=== PATIENT | male | born 1995 | race Caucasian/White ===

== ENCOUNTER 2020-03-19 18:53 | Emergency (ER) | payer OTHER, SELFPAY ==
--- NOTE | ~2020-03-19 | XR_ITS ---
EXAMINATION: XR chest 1V portable DATE: 03/19/2020 20:13 INDICATION: Weakness, fatigue and loss of taste/smell. TECHNIQUE: frontal view of the chest was obtained. COMPARISON: None FINDINGS: The lungs are clear with no focal airspace opacities, pulmonary edema, pleural effusion or pneumothor ax. The cardiomediastinal silhouette is normal. Visualized bones and soft tissues are unremarkable. IMPRESSION: 1. No acute cardiopulmonary disease. Reviewed, dictated and finalized at location A.
[2020-03-19 18:55] VITALS: BP 146/98; PULSE 77; RESP 15; TEMP 36.4; O2SAT 100
[2020-03-19 19:30] VITALS: O2SAT 99
--- NOTE | 2020-03-19 20:56 | ED.URI ---
HPI - URI/Sore Throat General Chief Complaint: Upper Respiratory Infection Stated Complaint: lethargic/no sense of taste Time Seen by Provider: 03/19/20 19:40 History of Present Illness HPI Narrative: Patient is a 24-year-old male who presents ER with concerns for COVID-19 illness. Patient reports that he has had some upper respiratory congestion for the last week. Yesterday he lost his ability to taste and smell. He was eating anchovy pizza as well as tacos and cannot taste or smell either of these. No fever/chills/cough/shortness of breath. No known exposures but works at [employer] with many other people. Related Data Allergies Allergy/AdvReac Type Severity Reaction Status Date / Time amoxicillin Allergy Mild hives Verified 10/06/19 15:15 bee pollen Allergy Mild swelling Verified 10/06/19 15:15 Penicillins Allergy Mild hives Verified 10/06/19 15:15 Review of Systems Review of Systems: All systems reviewed & are unremarkable except as noted in HPI and below Constitutional: Constitutional: Denies chills, Denies fever(s) and Denies weakness ENT: Comments: Loss of taste and smell Respiratory: Respiratory: Denies cough, Denies dyspnea and Denies wheezing Gastrointestinal: Gastrointestinal: Denies abdominal pain, Denies nausea and Denies vomiting PMFSH Past Medical History Medical History (Updated 03/19/20 @ 21:03 by Ángel Santiago MD) Bipolar disorder, manic 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 HEAD: Normocephalic, atraumatic. CHEST: Clear to auscultation. No respiratory distress. HEART: Regular rate and rhythm. Normal peripheral pulses. EXTREMITIES: Normal range of motion. No edema. NEURO: Alert and oriented x3. PSYCH: Normal mood and affect. Course Course Emergency Course: Unremarkable exam and imaging. Discharge home with work note. Vital Signs Vital signs: Vital Signs Temperature 97.6 F 03/19/20 18:55 Pulse Rate 77 03/19/20 18:55 Respiratory Rate 15 03/19/20 18:55 Blood Pressure 146/98 H 03/19/20 18:55 Pulse Oximetry 100 03/19/20 18:55 Temperature 97.6 F 03/19/20 18:55 Pulse Rate 77 03/19/20 18:55 Respiratory Rate 15 03/19/20 18:55 Blood Pressure 146/98 H 03/19/20 18:55 Pulse Oximetry 100 03/19/20 18:55 Discharge Plan Discharge Clinical Impression: Loss of perception for taste, Loss of smell, Person under investigation for COVID-19 Patient Disposition: Home, Self-Care Condition: Stable Instructions: COVID-19 (Coronavirus Disease 2019) (ED) Additional Instructions: Return to the ER if you have fever over 100.4 ?F, you have chest pain or shortness of breath, cannot keep down food or water, you have additional concerns. You should not return to work until you are either COVID negative, or have been cleared by your primary care doctor should you be positive. Prescriptions: No Action aripiprazole [Abilify] 5 mg tablet 5 mg PO DAILY Qty: 30 RF: 0 Follow-up/Referrals: Brianna Lees MD [Primary Care Provider] - 1 Week Stand Alone Forms: Work/School Release IP
[2020-03-19 21:16] VITALS: PULSE 82; RESP 18; O2SAT 99
[2020-03-20 14:58] LABS: SARS-CoV-2 RNA PCR Positive
== END 2020-03-19 21:17 | disposition home or self-care (01) ==
PROVIDERS: Emergency Provider Emergency Medicine; PCP Family Medicine
DX: U07.1 COVID-19 (principal); R43.8 Other disturbances of smell and taste
CPT/HCPCS: 71045; 87635; 99283; C9803; U0003

== ENCOUNTER 2020-11-30 02:41 | Emergency (ER) | payer OTHER, SELFPAY ==
[2020-11-30 02:39] VITALS: BP 130/94; PULSE 101; RESP 18; TEMP 36.6; O2SAT 97
--- NOTE | 2020-11-30 02:45 | ECG_ITS ---
Measurements Intervals [place] Rate: 96 P: 49 AR: 184 QRS: 32 QRSD: 121 T: 33 QT: 325 QTc: 412 Interpretive Statements SINUS RHYTHM INTRAVENTRICULAR CONDUCTION DELAY BASELINE ARTIFACT- II, III BORDERLINE ECG Electronically Signed On 11-30-2020 15:58:21 CDT by Mynor Pollock D.O.
[2020-11-30 03:00] LABS: Basophils Percent Auto 0.5 % (0.2-1.2); Eosinophils Percent Auto 0.5 % (0-4.4); Hematocrit 45.3 % (42.0-52.0); Hemoglobin 15.3 g/dL (14.0-18.0); Immature Granulocyte Absolute 0.03 K/mm3 (0.00-0.031); Immature Granulocyte Percent A 0.5 % (0-0.5); Lymphocytes Absolute Auto 1.87 K/mm3 (0.9-3.2); Lymphocytes Percent Auto 30.8 % (18.3-44.2); Mean Corpuscular HGB Conc 33.8 g/dl (32-36); Mean Corpuscular Hemoglobin 29.5 pg (26-34); Mean Corpuscular Volume 87.3 fl (80-100); Mean Platelet Volume 9.7 fl (7.4-10.4); Monocytes Absolute Auto 0.7 K/mm3 (0.1-0.6); Monocytes Percent Auto 11.2 % (2.6-8.5); Neutrophils Absolute Auto 3.4 K/mm3 (1.3-6.7); Neutrophils Percent Auto 56.5 % (45.5-73.1); Platelet Count Result 244 k/mm3 (150-375); Red Blood Count 5.19 M/mm3 (4.6-6.20); Red Cell Distribution Width 12.8 % (11.5-14.5); White Blood Count 6.1 K/mm3 (4.5-10.0)
--- NOTE | 2020-11-30 03:00 | PC.NURSE ---
Pt calm and cooperative. Sitter at bedside. No distress.
[2020-11-30 03:12] LABS: Alanine Aminotransferase 49 U/L (4-50); Albumin Level 4.9 g/dL (3.5-5.1); Alkaline Phosphatase 70 U/L (38-126); Anion Gap 11 mmol/L (8-16); Aspartate Amino Transferase 42 U/L (17-59); Bilirubin,Total 0.2 mg/dL (0.2-1.3); Blood Urea Nitrogen 12 mg/dL (9-20); Calcium 8.7 mg/dL (8.4-10.2); Carbon Dioxide 24 mmol/L (22-30); Chloride 109 mmol/L (98-107); Estimated CRCL calculation 120 ml/min; Estimated Glomerular Filt Rate > 60; Glucose 115 mg/dL (75-110); Potassium 3.7 mmol/L (3.4-5.0); Sodium 144 mmol/L (137-145)
[2020-11-30 03:16] LABS: Ethanol 200 mg/dL (<10)
--- NOTE | 2020-11-30 03:42 | ED.GENADULT ---
HPI - General Adult General Chief complaint: Psychiatric Symptoms <Marci López MD - Last Filed: 11/30/20 07:02> Stated complaint: SI - psych eval <Marci López MD - Last Filed: 11/30/20 07:02> Time Seen by Provider: 11/30/20 03:14 <Marci López MD - Last Filed: 11/30/20 07:02> Source: patient and EMS <Marci López MD - Last Filed: 11/30/20 07:02> Limitations: no limitations <Marci López MD - Last Filed: 11/30/20 07:02> History of Present Illness HPI narrative: Patient is 25 years old white male came to the emergency room by ambulance because of suicidal ideation for the last 3 weeks/months/years. Patient reports intermittent feeling of killing himself, patient is telling me that he wants to also is planning to lay in front of traffic to get killed. Patient been inpatient for psychiatric care at least 4 times in the past and had multiple suicide attempts. Including drug overdose and cutting himself. <Marci López MD - Last Filed: 11/30/20 07:02> Related Data Allergies/adverse reactions: Allergies Allergy/AdvReac Type Severity Reaction Status Date / Time amoxicillin Allergy Mild hives Verified 11/30/20 02:47 bee pollen Allergy Mild swelling Verified 11/30/20 02:47 Penicillins Allergy Mild hives Verified 11/30/20 02:47 <Marci López MD - Last Filed: 11/30/20 07:02> Review of Systems Review of Systems: Narrative: CONSTITUTIONAL: Denies fever, chills, or sweats. EYES: Denies visual changes, redness, or discharge. ENT: Denies rhinorrhea, congestion, sore throat, or otalgia. CARDIOVASCULAR: Denies chest pain, palpitations, or edema. RESPIRATORY: Denies cough or dyspnea. GASTROINTESTINAL: Denies abdominal pain, nausea, vomiting, or diarrhea. GENITOURINARY: Denies dysuria or hematuria. SKIN: Denies rash or itching. MUSCULOSKELETAL: Denies back pain, joint pain, or myalgia. NEUROLOGIC: Denies headache, numbness, or weakness. PSYCHIATRIC: Denies anxiety or depression. 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 Schizoaffective disorder, bipolar type <Marci López MD - Last Filed: 11/30/20 07:02> Surgical History Surgical History: Surgical History No pertinent past surgical history <Marci López MD - Last Filed: 11/30/20 07:02> Social History Social History: Social History Social History: single Smoking status: Never smoker Second hand tobacco smoke exposure: No Alcohol intake: never Substance use: never Substance use type: does not use Gender identity (if verbalized by the patient): Male <Marci López MD - Last Filed: 11/30/20 07:02> Exam Narrative: Exam Narrative: General appearance: Well-developed, well-nourished Skin: Normal color Head: Normocephalic, nontraumatic Eyes: Clear conjunctiva ENT: Oropharynx normal, ears normal, nose normal Neck: Supple, nontender Chest and respiratory: Airway patent, no respiratory distress, no accessory muscle use Heart: Regular rate/rhythm Abdomen: Soft, nontender, no organomegaly, quiet bowel sounds Vascular: Normal peripheral pulses, normal capillary refill. Musculoskeletal: Normal range of motion, nontender back Neurologic: Alert and oriented ?3, FIBERGLASS ROLLER is normal as tested, no gross motor deficit <Marci López MD - Last Filed: 11/30/20 07:02> Course Course Emergency Course: Stable <Marci López MD - Last
--- NOTE | 2020-11-30 03:47 | PC.NURSE ---
Pt unable to provide UA sample at this time.
[2020-11-30 04:21] LABS: Add Urine Microscopic? NO; Appearance Urine Clear (Clear); Bilirubin Urine Negative (Negative); Blood Urine Negative (Negative); Color Urine Yellow (Yellow); Glucose Urine UA Negative (Negative); Ketones Urine Negative (Negative); Leukocyte Esterase Ur Negative LEU/UL (Negative); Nitrate Urine Negative (Negative); Protein Urine Negative (Negative); Specific Grav Ur 1.011 (1.001-1.035); Urobilinogen Urine Negative mg/dL (<2.0)
[2020-11-30 04:36] LABS: Amphetamine Screen Urine Negative (Negative); Barbiturate Screen Urine Negative (Negative); Benzodiazepines Screen Urine Negative (Negative); Cannabinoid Screen Urine Negative (Negative); Cocaine Screen Urine Negative (Negative); Methadone Screen Urine Negative (Negative); Opiate Screen Urine Negative (Negative); Phencyclidine Screen Urine Negative (Negative)
--- NOTE | 2020-11-30 06:01 | PC.NURSE ---
1:1 observation continues. Pt sleeping. No distress.
[2020-11-30 06:03] VITALS: BP 142/78; PULSE 89; RESP 16; O2SAT 98
--- NOTE | 2020-11-30 07:15 | PC.NURSE ---
Pt asleep easily arousable, non-labored respirations, 1:1 sitter at bedside. Breakfast tray ordered
--- NOTE | 2020-11-30 08:15 | PC.NURSE ---
Pt awake, resting on cart, updated on POC. Denies SI/HI, states I just said those things when I was drinking , calm and cooperative, asking when he can go home. 1:1 sitter at bedside
[2020-11-30 08:29] LABS: Ethanol 104 mg/dL (<10)
--- NOTE | 2020-11-30 09:28 | PC.NURSE ---
Per Dr Santiago repeat ETOH needed before medical clearance. Pt awake, resting on cart, calm, 1:1 sitter at bedside
[2020-11-30 10:25] LABS: Ethanol 52 mg/dL (<10)
--- NOTE | 2020-11-30 10:30 | PC.NURSE ---
Spoke with crisis, states they will send out worker for eval
--- NOTE | 2020-11-30 11:52 | PC.NURSE ---
Crisis at bedside
--- NOTE | 2020-11-30 12:54 | PC.NURSE ---
Crisis still at bedside speaking with pt
[2020-11-30 13:11] VITALS: BP 118/75; PULSE 78; RESP 18; O2SAT 100
[2020-11-30 14:27] LABS: SARS-CoV-2 RNA PCR Negative
== END 2020-11-30 13:11 | disposition home or self-care (01) ==
PROVIDERS: Emergency Medicine; Emergency Provider Emergency Medicine
DX: Z20.822 Contact with and (suspected) exposure to COVID-19 (principal); F10.129 Alcohol abuse with intoxication, unspecified; Y90.0 Blood alcohol level of less than 20 mg/100 ml; F31.9 Bipolar disorder, unspecified
CPT/HCPCS: 36415; 80053; 80307; 81003; 84443; 85025; 93005; 99283; C9803; U0003; U0005

== ENCOUNTER 2024-04-22 17:23 | Emergency (ER) | payer OTHER, SELFPAY ==
--- NOTE | ~2024-04-22 | XR_ITS ---
EXAMINATION: XR abdomen/kub 1V DATE: 04/22/2024 19:33 INDICATION: Abdominal pain with constipation TECHNIQUE: A supine view of the abdomen on 2 radiographs was obtained. COMPARISON: None. FINDINGS: Small to moderate amount of gas scattered throughout the colon with minimal stool in the sigmoid colo n. No dilated gas-filled loops of small bowel to suggest obstruction. Phlebolith in the right hemipel vis. Bones are unremarkable. IMPRESSION: 1. Nonobstructive bowel gas pattern with minimal stool in the sigmoid colon Reviewed, dictated and finalized at location A.
--- NOTE | ~2024-04-22 | CT_ITS ---
EXAMINATION: CT chest abdomen pelvis w con DATE: 04/22/2024 21:19 INDICATION: Abdominal pain, nausea, vomiting and diarrhea TECHNIQUE: Computed tomography (CT) of the chest, abdomen, and pelvis was performed with 100 mL Omnip aque-350 intravenous contrast. Automated exposure control and iterative reconstruction technique were employed. The dose-length product was 1042.10 mGy-cm. COMPARISON: None FINDINGS: CHEST CT: Lungs are clear with no pneumonia, pulmonary edema or other pulmonary infiltrates. No pleural effusio n or pneumothorax. Heart size is normal. No pericardial effusion. No pathologically enlarged thoracic lymphadenopathy. Mild thoracic spondylosis. There is aortic root aneurysm with aorta measuring 3.7 cm in diameter at the aortic annulus, 5.2 x 4. 9 cm at the aortic sinus decreasing to 4.6 x 4.2 cm at the sinotubular junction and 3.8 x 3.6 cm at t he mid descending aorta. The aortic arch and descending thoracic aorta are normal in caliber. No aort ic dissection. ABDOMEN/PELVIS CT: Liver, gallbladder, spleen, pancreas, bilateral adrenal glands and kidneys are normal. There is fluid scattered throughout the normal-appearing colon consistent with given history of diarrhea. Small bow el and appendix are normal. Bladder is normal. No free intraperitoneal gas or fluid. There are smiley us small scattered throughout the mesentery which are more notable for number than size. No pathologi bambi enlarged abdominal or pelvic lymphadenopathy. Abdominal aorta is normal in caliber with no diss ection. Mild lumbar and moderate lumbosacral spondylosis. IMPRESSION: 1. 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 No other acute cardiopulmonary di sease. Given patient age this raise possibility of connective tissue disease or sequela of aortitis. 2. Fluid throughout the colon consistent with nonspecific diarrhea. No other acute intra-abdominal/pe lvic process. 3. Likely reactive mild mesenteric lymphadenopathy with numerous normal sized lymph nodes more notabl e for number than size. Reviewed, dictated and finalized at location A. IMPRESSION: 1. 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 No other ac tribe cardiopulmonary disease. Given patient age this raise possibility of connec tive tissue disease or sequela of aortitis. 2. Fluid throughout the colon consistent with nonspecific diarrhea. No other ac tribe intra-abdominal/pelvic process. 3. Likely reactive mild mesenteric lymphadenopathy with numerous normal sized l ymph nodes more notable for number than size.
[2024-04-22 17:23] VITALS: BP 130/88; PULSE 128; RESP 16; TEMP 36.2; O2SAT 99
[2024-04-22 19:02] VITALS: BP 126/98; PULSE 106; RESP 16; TEMP 37.2; O2SAT 98
--- NOTE | 2024-04-22 19:21 | ECG_ITS ---
Test Date: 2024-04-22 19:21:55 Measurements Intervals [place] Rate: 119 P: 48 [place]: 177 QRS: 48 QRSD: 106 T: 15 QT: 307 QTc: 433 Interpretive Statements SINUS TACHYCARDIA POSSIBLE LEFT ATRIAL ENLARGEMENT BORDERLINE R WAVE PROGRESSION, ANTERIOR LEADS CONSIDER INFERIOR INFARCT, AGE INDETERMINATE BASELINE ARTIFACT- I, II, III, AVR, AVL, AVF ABNORMAL ECG No previous ECG available for comparison Electronically Signed On 04-23-2024 10:13:35 CDT by Mynor Pollock D.O.
--- NOTE | 2024-04-22 19:26 | ED.NAVMDI ---
HPI - Nausea/Vomiting/Diarrhea General Chief complaint: Nausea/Vomiting/Diarrhea Stated complaint: diarrhea Time Seen by Provider: 04/22/24 18:32 Source: patient Mode of arrival: ambulatory Limitations: no limitations History of Present Illness HPI Narrative: Patient is a 28-year-old male who presents to the ER with diarrhea that started 6-7 days ago, he had nausea and vomiting that started today, and headache that started yesterday. His symptoms have progressively gotten worse. He denies any recent fevers but endorses feeling hot. Patient reports his medical History includes bipolar disease and viral meningitis at the age of 12. He reports he has not used alcohol or marijuana in the last couple of weeks. Patient denies shortness of breath, chest pain, wheezing, numbness or tingling. 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 HEAD: Normocephalic, atraumatic. No redness or swelling upon pt's oral exam. NECK: Supple. Palpable R sided cervical lymph node. RESPIRATORY: Airway patent, respirations nonlabored. Clear to auscultation bilaterally, no rales, rhonchi, wheezing. CARDIOVASCULAR: Tachycardia but regular rhythm without murmurs, rubs, or gallops. Peripheral pulses 2+ and equal bilaterally. ABDOMINAL: Soft, bilateral LUQ tender, nondistended, no hepatosplenomegaly. Normoactive BS. MUSCULOSKELETAL: Moves all extremities. Strength/ROM intact without gross deformities. SKIN: Warm, dry, normal color. No rashes. NEURO: A&O X3. Speech clear. Cranial nerves II-XII grossly intact. No ataxic movements. PSYCHIATRIC: Appropriate mood and affect. Normal interaction. Course Vital Signs Vital signs: Vital Signs Temperature 36.2 C L 04/22/24 17:23 Pulse Rate 128 H 04/22/24 17:23 Respiratory Rate 16 04/22/24 17:23 Blood Pressure 130/88 04/22/24 17:23 Pulse Oximetry 99 04/22/24 17:23 Temperature 36.8 C 04/23/24 00:34 Pulse Rate 97 04/23/24 00:34 Respiratory Rate 16 04/23/24 00:34 Blood Pressure 115/83 04/23/24 00:34 Pulse Oximetry 98 04/23/24 00:34 MDM - Nausea/Vomiting/Diarrhea MDM Narrative Medical decision making narrative: Patient is a 28-year-old male who presents to the ER with diarrhea that started 6-7 days ago, he had nausea and vomiting that started today, and headache that started yesterday. His symptoms have progressively gotten worse. He denies any recent fevers but endorses feeling hot. Patient reports his medical History includes bipolar disease and viral meningitis at the age of 12. He reports he has not used alcohol or marijuana in the last couple of weeks. Patient denies shortness of breath, chest pain, wheezing, numbness or tingling. Patient's CT chest abdomen pelvis showed 1. 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
[2024-04-22] MEDS: SODIUM CHLORIDE 0.9% IV 1,000 ML 999 ML IV CONT (20:12)
[2024-04-22] MEDS: ONDANSETRON INJ 4 MG/2 ML VIAL IV PUSH (20:12)
[2024-04-22 20:34] LABS: Basophils Percent Auto 0.4 % (0.2-1.2); Eosinophils Percent Auto 0.2 % (0-4.4); Hematocrit 50.2 % (42.0-52.0); Hemoglobin 17.6 g/dL (14.0-18.0); Immature Granulocyte Absolute 0.05 K/mm3 (0.00-0.031); Immature Granulocyte Percent A 0.5 % (0-0.5); Lymphocytes Absolute Auto 1.05 K/mm3 (0.9-3.2); Lymphocytes Percent Auto 11.5 % (18.3-44.2); Mean Corpuscular HGB Conc 35.1 g/dl (32-36); Mean Corpuscular Hemoglobin 29.7 pg (26-34); Mean Corpuscular Volume 84.8 fl (80-100); Mean Platelet Volume 10.1 fl (7.4-10.4); Monocytes Absolute Auto 1.2 K/mm3 (0.1-0.6); Neutrophils Absolute Auto 6.8 K/mm3 (1.3-6.7); Neutrophils Percent Auto 74.4 % (45.5-73.1); Platelet Count Result 258 k/mm3 (150-375); Red Blood Count 5.92 M/mm3 (4.6-6.20); Red Cell Distribution Width 12.6 % (11.5-14.5); White Blood Count 9.2 K/mm3 (4.5-10.0)
[2024-04-22 20:38] LABS: Add Urine Microscopic? YES; Appearance Urine Clear (Clear); Bacteria Urine None Seen /hpf; Bilirubin Urine Negative (Negative); Blood Urine Negative (Negative); Color Urine Dark Yellow (Yellow); Glucose Urine UA Negative (Negative); Ketones Urine 2+ mg/dL (Negative); Leukocyte Esterase Ur Negative LEU/UL (Negative); Nitrate Urine Negative (Negative); Non Pathogenic Casts 0-2; Protein Urine 1+ mg/dL (Negative); RBC Urine 0-2 /hpf (0-2); Specific Grav Ur 1.023 (1.001-1.035); Squamous Epithelial Cell Urine None Seen /hpf (Few); Urobilinogen Urine 0.2 mg/dL (<2.0); WBC Urine 0-5 /hpf (0-3); pH Urine 5.5 (5.0-9.0)
[2024-04-22 20:52] LABS: Amphetamine Screen Urine Negative (Negative); Barbiturate Screen Urine Negative (Negative); Benzodiazepines Screen Urine Negative (Negative); Cannabinoid Screen Urine Positive (Negative); Cocaine Screen Urine Negative (Negative); Methadone Screen Urine Negative (Negative); Opiate Screen Urine Negative (Negative); Phencyclidine Screen Urine Negative (Negative)
[2024-04-22 20:58] LABS: Lactic Acid Reflex 1.1 mmol/L (0.7-2.0)
[2024-04-22 20:59] LABS: Alanine Aminotransferase 70 U/L (6-50); Albumin Level 5.1 g/dL (3.5-5.1); Alkaline Phosphatase 88 U/L (38-126); Anion Gap 18 mmol/L (4-12); Aspartate Amino Transferase 49 U/L (17-59); Bilirubin,Total 0.6 mg/dL (0.2-1.3); Blood Urea Nitrogen 16 mg/dL (9-20); Calcium 9.3 mg/dL (8.4-10.2); Carbon Dioxide 18 mmol/L (22-30); Chloride 97 mmol/L (98-107); Estimated CRCL calculation 128 ml/min; Estimated Glomerular Filt Rate > 60; Glucose 98 mg/dL (65-110); Lipase 54 U/L (23-300); Potassium 3.5 mmol/L (3.4-5.0); Sodium 133 mmol/L (137-145)
[2024-04-22 21:43] LABS: Ethanol < 10 mg/dL (<10)
[2024-04-22 21:56] VITALS: BP 107/78; PULSE 104; RESP 15; TEMP 37.2; O2SAT 98
[2024-04-22 22:34] VITALS: BP 135/80; PULSE 95
[2024-04-22 22:35] VITALS: BP 131/95; PULSE 106
[2024-04-22 22:36] VITALS: BP 123/97; PULSE 103
[2024-04-22 22:50] LABS: Influenza A QL RT-PCR Negative (Negative); Influenza B QL RT-PCR Negative (Negative); RSV RNA, RT-PCR Negative (Negative); SARS-CoV-2 RNA PCR Negative (Negative)
[2024-04-23] MEDS: SODIUM CHLORIDE 0.9% IV 1,000 ML 999 ML IV CONT (00:30)
[2024-04-23] MEDS: diphenhydrAMINE HCl INJ 50 MG/ML VIAL 25 MG IV PUSH (00:30)
[2024-04-23] MEDS: METOCLOPRAMIDE HCL INJ 10 MG/2 ML VIAL IV PUSH (00:31)
[2024-04-23 00:34] VITALS: BP 115/83; PULSE 97; RESP 16; TEMP 36.8; O2SAT 98
[2024-04-23 02:08] VITALS: BP 117/76; PULSE 68; RESP 16; TEMP 36.6; O2SAT 98
== END 2024-04-23 02:09 | disposition home or self-care (01) ==
PROVIDERS: Emergency Provider Registered Nurse
DX: E86.0 Dehydration (principal); K52.9 Noninfective gastroenteritis and colitis, unspecified; R11.2 Nausea with vomiting, unspecified; Z20.822 Contact with and (suspected) exposure to COVID-19; F31.9 Bipolar disorder, unspecified
CPT/HCPCS: 36415; 71260; 74018; 74177; 80053; 80307; 81001; 83605; 83690; 85025; 87637; 93005; 96361; 96374; 96375; 99284; J1200; J2405; J2765; J7030; Q9967

== ENCOUNTER 2025-02-17 09:11 | Emergency (ER) | payer OTHER, SELFPAY ==
[2025-02-17 09:20] VITALS: BP 145/90; PULSE 79; RESP 16; TEMP 36.4; O2SAT 100
--- NOTE | 2025-02-17 09:58 | ED_ITS ---
HPI - Skin/Abscess/Foreign Bdy General Chief complaint: Skin/Abscess/Foreign Body Stated complaint: Ingrown Toenail Time Seen by Provider: 02/17/25 09:20 Source: patient and RN notes reviewed Mode of arrival: ambulatory Limitations: no limitations History of Present Illness HPI narrative: 29-year-old male presents Express Care complaining of possible ingrown toenail to right toe for proximally 1 week. Patient noticed worsening redness and swelling at to the medial side of his right great toe. Patient denies any injuries. Patient states he cuts his toenails very short. Patient has been putting antibiotic ointment as his concern is infected. Patient denies any drainage, fevers, bites, chills, or any other symptoms. Related Data Home Medications ?Medication ?Instructions ?Recorded ?Confirmed ?Last Taken ?Type divalproex 500 mg tablet,delayed mg PO 02/17/25 Unknown History release trazodone 50 mg tablet mg 02/17/25 Unknown History Allergies Allergy/AdvReac Type Severity Reaction Status Date / Time amoxicillin Allergy Mild hives Verified 02/17/25 09:20 bee pollen Allergy Mild swelling Verified 02/17/25 09:20 Penicillins Allergy Mild hives Verified 02/17/25 09:20 prochlorperazine (From AdvReac Blurry Verified 02/17/25 09:20 Compazine) Vision Review of Systems Review of Systems: CONSTITUTIONAL: Denies fever, chills, or sweats. EYES: Denies visual changes, redness, or discharge. ENT: Denies rhinorrhea, congestion, sore throat, or otalgia. CARDIOVASCULAR: Denies chest pain, palpitations, or edema. RESPIRATORY: Denies cough or dyspnea. GASTROINTESTINAL: Denies abdominal pain, nausea, vomiting, or diarrhea. GENITOURINARY: Denies dysuria or hematuria. SKIN: Denies rash or itching. MUSCULOSKELETAL: Denies back pain, joint pain, or myalgia. Positive for toe swelling and redness. NEUROLOGIC: Denies headache, numbness, or weakness. PSYCHIATRIC: Denies anxiety or depression. All other systems reviewed are negative, except as documented in HPI. 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 There is no relevant family history pertinent to the patient complaint. Exam Narrative: GENERAL: This is a well-nourished, well-developed adult, in no apparent distress. They are non ill-appearing, nontoxic appearing. HEAD: normocephalic, atraumatic. EYES: Sclera clear/white. Conjunctiva normal. Vision is grossly intact. Extraocular movements intact EARS: External ears normal, Hearing grossly intact. NOSE: External nose normal THROAT: Mucous membranes moist, NECK: Neck supple, CARDIOVASCULAR: Regular rate and rhythm RESPIRATORY: Respiratory rate normal, respiratory effort nonlabored, no respiratory distress SKIN: Right great toe: Medial side of great toe is erythematous, no area of fluctuance, no exudate. Mild tenderness to palpation. Retronychia present. NEURO: awake, alert, and oriented to person, place and time. There were no obvious focal neurologic abnormalities. EXTREMITIES: No joint tenderness, effusion, or edema noted. Course Course Emergency Course: Portions of this record may have been created with voice recognition software Level of Care: Express Care Visit Vital Signs Vital signs: Vital Signs Temperature 97.5 F L 02/17/25 09:20 Pulse Rate 79 02/17/25 09:20 Respiratory Rate 16 02/17/25 09:20 Blood Pressure 145/90 H 02/17/25 09:20 Pulse Oximetry 100 02/17/25 09:20 Temperature 97.5 F L 02/17/25 09:20 Pulse Rate 79 02/17/25 09:20 Respiratory Rate 16 02/17/25 09:20 Blood Pressure 145/90 H 02/17/25 09:20 Pulse Oximetry 100 02/17/25 09:20 Reviewed MDM - Skin/Abscess/Foreign Bdy MDM Narrative Medical decision making narrative: Patient has small paronychia related to ingrown toenail, no evidence abscess formation. Will prescribe patient triamcinolone cream in mupirocin cream. Discussed physical exam findings. Advised supportive measures and signs/symptoms to go to the ER. Pt is appropriate for outpt treatment and f/u. Differential Diagnosis Differential diagnosis: Likely abscess of skin or subcutaneous tissue, cellulitis and other (Paronychia, retronychia, paronychia with abscess) Critical Care Time Critical Care Time Critical Care Time: No Discharge Plan Discharge Clinical Impression: Paronychia of toe of right foot due to ingrown toenail Patient Disposition: Home Condition: Stable Instructions: Ingrown Nail (ED) Additional Instructions: Soak your right foot in warm soapy water for 10-20 minutes then apply this triamcinolone cream twice a day for 2 weeks. Use the mupirocin ointment as directed. Follow-up podiatry for further evaluation management of ingrown toenail. If you developed worsening redness, swelling, pain, green/yellow discharge, fevers, any other concerns please go to the ER immediately. Patient Language: Sudanese Prescriptions: New triamcinolone acetonide 0.5 % cream 1 applic topical BID 14 Days Qty: 15 0RF mupirocin calcium 2 % cream 1 applic topical BID 7 Days Qty: 30 0RF No Action trazodone 50 mg tablet divalproex 500 mg tablet,delayed release (/EC) PO Follow-up/Referrals: Ralf Vergara DPM [Physician] - PHYSICIAN,MEDICAL SCREENER [Primary Care Provider] - Time of Disposition: 09:33
== END 2025-02-17 09:47 | disposition home or self-care (01) ==
DX: L03.031 Cellulitis of right toe (principal); L60.0 Ingrowing nail; F31.9 Bipolar disorder, unspecified
CPT/HCPCS: 99213; G0463

== ENCOUNTER 2025-05-24 07:23 | Emergency (ER) | payer OTHER, SELFPAY ==
--- OUTSIDE RECORDS SUMMARY | 2002-08-23 04:45 | XMS_ITS | Continuity of Care Document ---
Author Organization [facility] Address [address] [place] [address] Phone Care Team Providers Care Transit Police Officer Name Role Phone Wendy Russo Unavailable Unavailable Advance Directives Directive Yes / No Effective Date File Name No Information Encounters Encounter Description Practice Location Reason(s) For Visit Diagnoses Date Provider Providers Copied on Encounter [facility], [address], [place], [place], [id number], [place] tel:[phone] [facility] No Information [address]. [address] , [address], [place], [address], [place]. tel:[phone] Family History Family Member Type Diagnosis Age At Onset No Information Payers Payer name Insurance type Covered green party ID Authoriza tion(s) [employer] SOI CI [id number] Social History Type Description Quantity Date Captured [...]
--- NOTE | ~2025-05-24 | CT_ITS ---
EXAMINATION: CT cervical spine wo con DATE: 05/24/2025 09:01 INDICATION: Neck pain. TECHNIQUE: Computed tomography (CT) of the cervical spine was performed without intravenous contrast. Automated exposure control and iterative reconstruction technique were employed. The dose-length product was 573.39 mGy-cm. COMPARISON: Chest CT 04/22/2024 FINDINGS: There is 6 degrees levocurvature of cervical spine. There is mild kyphosis of cervical spine. Vertebral body heights are normal. There is widening of the C6-C7 disc. The following disc levels are specifically discussed: C2-C3: There is mild bilateral uncovertebral joint osteoarthritis. There is mild bilateral facet joint osteoarthritis. There is no neural foraminal stenosis. There is no central canal stenosis. C3-C4: There is no uncovertebral joint osteoarthritis. There is mild bilateral facet joint osteoarthritis. There is no neural foraminal stenosis. There is no central canal stenosis. C4-C5: There is no uncovertebral joint osteoarthritis. There is no facet joint osteoarthritis. There is no neural foraminal stenosis. There is no central canal stenosis. C5-C6: There is no uncovertebral joint osteoarthritis. There is no facet joint osteoarthritis. There is no neural foraminal stenosis. There is no central canal stenosis. C6-C7: There is no uncovertebral joint osteoarthritis. There is moderate right and mild left facet joint osteoarthritis. There is mild right neural foraminal stenosis. There is no central canal stenosis. C7-T1: There is no uncovertebral joint osteoarthritis. There is mild bilateral facet joint osteoarthritis. There is no neural foraminal stenosis. There is no central canal stenosis. IMPRESSION: 1. Chronic widening of the C6-C7 disc, stable from 04/22/2024, which may be from old injury. 2. Mild cervical spondylosis. Reviewed, dictated and finalized at location E.
--- OUTSIDE RECORDS SUMMARY | 2025-05-24 07:26 | XMS_ITS | Patient Health Record ---
[facility] Organization [facility] Address [address] [place] [address] Care Team Providers Care Nanny Caregiver Name Role Phone Bonnie Saldaña Primary Care Provider Jessica Santiago Unavailable [phone] Allergies Allergen (clinical drug ingredient) Drug/Non Drug Allergy documented on EMR Reaction Allergy Type Onset Date Status amoxicillin Amoxicillin Unknown Drug Allergy Act juan PENICILLIN Unknown Drug Allergy Active Reason For Referral No Information Medications Medication SIG (Take, Route, Fr equency, Duration) Notes Start Date End Date Status Gabapentin 100 MG 2 capsules Orally Th ree times a day; Duration: 30 days Active Abilify 2 MG 1 tablet Orally Once a day; Duration: 30 days Active traZODone HCl 50 MG 1 tablet at bedtime as needed Orally Once a day; Duration: 30 day(s) Active Social History Alcohol Screen (Audit-C) Question Answer Notes Did you have a drink contain ing alcohol in the past year? Yes How often did you have a dri nk containing alcohol in the past year? 4 or more times a week (4 points) How many drinks did you have on a typical day when you were drinking in the past year? 1 or 2 drinks (0 point) How often did you have 6 or more drinks on one occasion in the past year? Daily or almost daily (4 points) Points 8 Interpretation Positive Section Notes: Lives with parents Lives with parents Lives with parents Lives with parents Lives with parents Lives with parents Lives with parents Lives with parents Lives with parents Lives with parents Problems Problem Type SNOMED Code ICD Code Onset Dates Problem Status W/U Status Risk Notes Problem Bipolar 1 disorder (229119980) Bipolar 1 disorder (F31.9) Active confirmed Problem Bipolar I disorder (734664727) Bipolar affective disorder in remission (F31.70) Active confirmed Plan Of Treatment No Information Insurance Providers Payer Name Payer Address Payer Phone Subscriber Number Group Number Insured Name Patient Relationship to Insured Coverage Start Date Coverage End Date [facility] [address] [place] [phone] [id number] Adarsh Christensen Self - patient is the insured 7
--- OUTSIDE RECORDS SUMMARY | 2025-05-24 07:26 | XMS_ITS | Clinical Summary ---
Author Organization [employer] [address] Address [address] [place] [address] Care Team Providers Care Painting Technician Name Role Phone Unavailable Primary Care Provider Unavailabl e Encounters Date Type Department Care Team Description 03/03/2025 External Device Data ST[facility] ABSTRACTION Provider, Abstract from Last 3 Months Social History Tobacco Use Types Packs/Day Years Used Date Smoking Tobacco: Never Assessed Sex and Gender Information Value Date Recorded Sex Assigned at Not on file Legal Sex Male 2:15 PM CDT Gender Identity Not on file Sexual Orientation Not on file Plan of Treatment Health Maintenance Due Date Last Done Comments DTAP/TDAP/TD VACCINES (1 - Tdap) 2013 HEPATITIS B VACCINES (1 of 3 - 19+ 3-dose series) 10/28 HPV VACCINES (1 - 3-dose SCDM series) 2021 INFLUENZA VACCINE (#1) 2025 Insurance [facility]
--- OUTSIDE RECORDS SUMMARY | 2025-05-24 07:26 | XMS_ITS | Clinical Summary ---
Author Organization [facility] [address] Address [address] [place] [address] Care Team Providers Care Senior Qualitative Researcher Name Role Phone Feroz Obando MD Primary Care Provider [phone] Feroz Obando MD Unavailable Moody Zuñiga MD Unavailable [phone] Allergies Active Allergy Reactions Criticality Noted Date Comments Prochlorperazine Dizziness Low 05/26/2024 Penicillins Hives Medium As a child; Tolerates cefazolin (admission 05/21/2024) Medications atorvastatin (LIPITOR) 20 mg tabletIndicatio ns:hyperlipidem ia Take 1 tablet (20 mg total) by mouth daily 30 tablet 1 06/25/2024 Active metoprolol tartrate (LOPRESSOR) 25 mg immediate release tablet Take 1 tablet (25 mg total) by mouth daily Active DM/p-ephed/acet aminoph/doxylam (NYQUIL D ORAL) Take by mouth as needed Active colchicine (COLCRYS) 0.6 mg tablet Take 1 tablet (0.6 mg total) by mouth daily 42 tablet 07/07/2024 Active famotidine (PEPCID) 20 mg tablet Take 1 tablet (20 mg total) by mouth 2 (two) times a day 84 tablet 07/06/2024 Active aspirin 81 mg chewable tabletIndicatio ns:Aortic root aneurysm CHEW AND SWALLOW 1 TABLET(81 MG) BY MOUTH DAILY 30 tablet 07/28/2024 Active Active Problems Problem Noted Date Diagnosed Date Post-op pain 07/05/2024 Encounter for other specified aftercare 06/30/20 Vertigo 05/24/2024 Ileus 05/24/2024 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 Surgical History Surgery Date Site/Laterality Comments EAR SURGERY tubes as chile ARTERIAL ANEURYSM REPAIR Valve sparing aortic root replacement and ascending aorta replacement Medical History Medical History Date Comments Aortic root aneurysm Family History Medical History Relation Name Comments Early Father's Sister bicuspid aortic valve Maternal Grandmother Hypertension Mother Early Other Aneurysm Paternal Grandmother cerebra l and aortic aneurysm repair Relation Name Status Comments Brother Alive Father Alive Father's Sister Maternal Grandmother Mother Alive Other paternal aunt Paternal Grandmother Sister Alive Social History Tobacco Use Types Packs/Day Years Used Date Smoking Tobacco: Every Day Cigarettes Pipe Cigars Vaping Smokeless Tobacco: Current OASIS D0700: Social Isolation Answer Da te Recorded Frequency of experiencing loneliness or isolatio n Never 06/24/2024 OASIS A1250: Transportation Answer Date Recorded Lack of Transportation (Medical) No 06/24/2024 Lack of Transportation (Non-Medical) No 06/24/2024 Patient Unable or Declines to Respond No 06/24/2024 OASIS B1300: Health Literacy Answer Sukhdev e Recorded Frequency of needing help to read materials from doctor or pharmacy Sometimes 06/24/2024 [facility] Utilities Answer Date Recorded In the past 12 months has th e electric, gas, oil, or water company threatened to shut off services in your home? No 05/26/2024 Social Connection and Isolation Panel Answer Date Recorded In a typical week, how many times do you talk on the phone with family, friends, or neighbors? More than three times a week 05/26/2024 How often do you get togethe r with friends or relatives? More than three times a week 05/26/2024 How often do you attend chur ch or episcopal services? 1 to 4 times per year 05/26/2024 Do you belong to any clubs o r organizations such as uatsdin groups, unions, fraternal or athletic groups, or school groups? Yes 05/26/2024 How often do you attend meet ings of the clubs or organizations you belong to? More than 4 times per year 05/26/2024 Marital Status Not on file 05/26/2024 AUDIT-C Answer Date Recorded Q1: How often do you have a drink containing alcohol? 4 or more times a week 05/21/2024 Q2: How many drinks containi ng alcohol do you have on a typical day when you are drinking? 5 or 6 Q3: How often do you have si x or more drinks on one occasion? Daily or almost daily 05/21/2024 Overall Financial Resource Strain (CARDIA) Answe r Date Recorded How hard is it for you to pa y for the very basics like food, housing, medical care, and heating? Not very hard 05/26/2024 Hunger Vital Sign Answer Date Recorded Within the past 12 months, y ou worried that your food would run out before you got the money to buy more. Never true 05/26/20 24 Within the past 12 months, t he food you bought just didn't last and you didn't have money to get more. Never true 05/26/2024 PRAPARE - Transportation Answer Date Re corded In the past 12 months, has l ack of transportation kept you from medical appointments or from getting medications? No 04/30 In the past 12 months, has l ack of transportation kept you from meetings, work, or from getting things needed for daily living? No 05/26/2024 Housing Stability Vital Sign Answer Sukhdev e Recorded In the last 12 months, was t here a time when you were not able to pay the mortgage or rent on time? No 05/26/2024 In the past 12 months, how m any times have you moved where you were living? 0 05/26/2024 At any time in the past 12 m [facility], were you homeless or living in a snf (including now)? No 05/26/2024 Personal Safety Answer Date Recorded Have you ever been in or are you currently in a harmful physical or emotional relationship or is someone making you feel afraid or unsafe? Denies 07/05/2024 Sex and Gender Information Value Date Recorded Sex Assigned at Not on file Legal Sex Male 3:43 AM BUSINESS MANAGEMENT CONSULTANT Gender Identity Not on file Sexual Orientation Not on file Obstetrics History Last Filed Vital Signs Vital Sign Reading Time Taken Comments Blood Pressure 126/84 07/06/2024 12:30 PM BUSINESS MANAGEMENT CONSULTANT Pulse 96 07/06/2024 12:30 PM BUSINESS MANAGEMENT CONSULTANT Temperature 36.9 C (98.4 F) 07/06/2024 12:30 PM BUSINESS MANAGEMENT CONSULTANT Respiratory Rate 18 07/06/2024 12:3 0 PM BUSINESS MANAGEMENT CONSULTANT Oxygen Saturation 100% 07/06/2024 12: 30 PM BUSINESS MANAGEMENT CONSULTANT Inhaled Oxygen Concentration - - Weight 94.7 kg (208 lb 12.4 oz) 07/05/2024 9:35 PM BUSINESS MANAGEMENT CONSULTANT Height 180.3 cm (5' 10.98) 07/05/2024 9:[address] Body Mass Index 29.13 07/05/2024 9:35 PM BUSINESS MANAGEMENT CONSULTANT Plan of Treatment Health Maintenance Due Date Last Done Comments Depression Screening 1994 Hepatitis C Screening 1994 DTaP/Tdap/Td Vaccine (1 - Tdap) 2005 Varicella Vaccines (1 of 2 - 13+ 2-dose series) 2007 Hepatitis B Screening 2012 Regular Well Visit/Exam 18-64 2012 Pneumococcal vaccine <65 (1 of 2 - PCV) 2013 HPV Vaccines (1 - 3-dose SCDM series) 2021 Influenza Vaccine (#1) 2025 Medical Devices Implanted Type Area Drum Filler Device Identifier Shelf Expiration Date Model / Serial / Lot Terumo Cardio Vascular Gelweave Valsalva 42mm 32mm 15cm 32mm Woven Aortic Root Graft [id number] - [id number] Implanted:Qty: 1 on 05/21/2024 by Moody Zuñiga MD at [facility] Graft N/A: Aortic Root Ter[employer]o Cardio Vascular 05/29/2026 [id number] / / [employer] Device Closure Tigertape Sternal Cerclage Blunt Needle [id number] - [id number] Implanted:Qty: 1 on 05/21/2024 by Moody Zuñiga MD at [facility] N/A: Heart [employer] 11/26/2028 [id number] / / [id number] [employer] Device Closure Tigertape Sternal Cerclage Blunt Needle Ar-[id number] - [id number] Implanted:Qty: 1 on 05/21/2024 by Moody Zuñiga MD at [facility] N/A: Heart [employer] 11/26/2028 [id number] / / [id number] Insurance [facility] CLAIMS [facility] CLAIMS Advance Directives For more information, please contact: [phone] * Full Code (Latest Code Status on File) Date Activated Date Inactivated Comments 07/06/2024 12:32 AM 07/06/2024 6:06 PM * Full Code Date Activated Date Inactivated Comments 05/21/2024 11:54 AM 05/27/2024 6:19 PM Care Teams Senior Qualitative Researcher Relationship Specialty [place] [address] [address] [address] PCP - General Cardiovascular Disease 04/25/24 [place] [address] [address] [facility] [address] [place] [address] Referring Physician Cardiovascular Disease 04/25/24 Moody Zuñiga MD [address] [facility] [address] [place] [address] Consulting Physician Cardiothoracic Surgery 04/28/24
[2025-05-24 07:28] VITALS: BP 139/96; PULSE 97; RESP 20; TEMP 36.4; O2SAT 98
--- OUTSIDE RECORDS SUMMARY | 2025-05-24 07:51 | XMS_ITS | Clinical Summary ---
Author Organization [employer] [address] Address [address] [place] [address] Care Team Providers Care Air Conditioning Mechanic Name Role Phone Unavailable Primary Care Provider [...] series) 2021 INFLUENZA VACCINE (#1) 2025 Insurance [facility]
--- OUTSIDE RECORDS SUMMARY | 2025-05-24 07:51 | XMS_ITS | Clinical Summary ---
Author Organization [employer] [address] Address [address] [place] [address] Care Team Providers Care Social Work Assistant Name Role Phone Feroz Obando MD Primary Care Provider Feroz Obando MD Unavailable Moody Zuñiga MD Unavailable [phone] Allergies Active Allergy Reactions Criticality Noted Date [...] materials from doctor or pharmacy Sometimes 06/24/2024 [facility] Utilities Answer Date Recorded In the [...] often do you attend chur ch or restorationism services? 1 to 4 times per year 05/26/2024 Do you belong to any clubs o r organizations such as gnosticist groups, unions, fraternal or athletic groups, or [...] any time in the past 12 m [facility], were you homeless or living in a fci (including now)? No 05/26/2024 Personal Safety Answer Date Recorded Have you ever been in or are you currently in a harmful physical or emotional relationship or is someone making you feel afraid or unsafe? Denies 07/05/2024 Sex and Gender Information Value Date Recorded Sex Assigned at Not on file Legal Sex Male 3:43 AM MEMBERSHIP ADMINISTRATOR Gender Identity Not on file Sexual Orientation Not on file Obstetrics History Last Filed Vital Signs Vital Sign Reading Time Taken Comments Blood Pressure 126/84 07/06/2024 12:30 PM MEMBERSHIP ADMINISTRATOR Pulse 96 07/06/2024 12:30 PM MEMBERSHIP ADMINISTRATOR Temperature 36.9 C (98.4 F) 07/06/2024 12:30 PM MEMBERSHIP ADMINISTRATOR Respiratory Rate 18 07/06/2024 12:3 0 PM MEMBERSHIP ADMINISTRATOR Oxygen Saturation 100% 07/06/2024 12: 30 PM MEMBERSHIP ADMINISTRATOR Inhaled Oxygen Concentration - - Weight 94.7 kg (208 lb 12.4 oz) 07/05/2024 9:35 PM MEMBERSHIP ADMINISTRATOR Height 180.3 cm (5' 10.98) 07/05/2024 9:[address] Body Mass Index 29.13 07/05/2024 9:35 PM MEMBERSHIP ADMINISTRATOR Plan of Treatment Health Maintenance Due Date [...] (#1) 2025 Medical Devices Implanted Type Area Outdoor Advertising Leasing Agent Device Identifier Shelf Expiration Date Model / Serial / Lot Terumo Cardio Vascular Gelweave Valsalva 42mm 32mm 15cm 32mm Woven Aortic Root Graft [id number] - [id number] Implanted:Qty: 1 on 05/21/2024 by Moody Zuñiga MD at [facility] Graft N/A: Aortic Root Terumo Cardio Vascular 05/29/2026 [id number] / / [employer] Device Closure Tigertape Sternal Cerclage Blunt Needle Ar-[id number] - [id number] Implanted:Qty: 1 on 05/21/2024 by Moody Zuñiga MD at [facility] N/A: Heart [employer] 11/26/2028 AR-[id number] / / [id number] [employer] Device Closure Tigertape Sternal Cerclage Blunt Needle Ar-[id number] - [id number] Implanted:Qty: 1 on 05/21/2024 by Moody Zuñiga MD at [facility] N/A: Heart [employer] 11/26/2028 [id number] / / [id number] Insurance [facility] CLAIM[facility] CLAIM[facility] Advance Directives For more information, please contact: [phone] * Full Code (Latest Code Status on File) Date Activated Date Inactivated Comments 07/06/2024 12:32 AM 07/06/2024 6:06 PM * Full Code Date Activated Date Inactivated Comments 05/21/2024 11:54 AM 05/27/2024 6:19 PM Care Teams Social Work Assistant Relationship Specialty [place] [address] [address] [address] PCP - General Cardiovascular Disease 04/25/24 [place] [address] [address] [facility] [address] [place] [address] Referring Physician Cardiovascular Disease 04/25/24 Moody Zuñiga MD [address] [facility] [address] [place] [address] Consulting Physician Cardiothoracic Surgery 04/28/24
--- NOTE | 2025-05-24 07:59 | ED.NECK ---
HPI - Neck Pain/Injury General Chief Complaint: Neck Pain/Injury Stated Complaint: neck pain Time Seen by Provider: 05/24/25 07:24 History of Present Illness HPI Narrative: Patient is a 29-year-old male who presents ER with pain to his neck. Midline upper cervical. Worse with range of motion of the head. Had mild discomfort yesterday evening but woke up today and has severe pain when he tries move his head. No numbness or tingling of the arms or legs. No fevers or chills or sweats. No known traumatic injury. Related Data Home Medications ?Medication ?Instructions ?Recorded ?Confirmed ?Last Taken ?Type divalproex 500 mg tablet,delayed mg PO BID 04/03/25 04/03/25 Unknown History release Allergies Allergy/AdvReac Type Severity Reaction Status Date / Time amoxicillin Allergy Mild hives Verified 05/24/25 08:01 bee pollen Allergy Mild swelling Verified 05/24/25 08:01 Penicillins Allergy Mild hives Verified 05/24/25 08:01 prochlorperazine (From AdvReac Blurry Verified 05/24/25 08:01 Compazine) Vision Review of Systems Review of Systems: All systems reviewed & are unremarkable except as noted in HPI and below Constitutional: Constitutional: Reports no additional constitutional complaints Cardiovascular: Cardiovascular: Reports no additional cardiovascular complaints Musculoskeletal: Musculoskeletal: Reports no additional musculoskeletal complaints Neurologic: Reports system reviewed and no additional complaints, except as documented [facility] Past Medical History Medical History History of alcohol abuse Person under investigation for COVID-19 Pericarditis Aortic aneurysm without rupture Insomnia Bipolar disorder, manic Schizoaffective disorder, bipolar type Surgical History Surgical History S/P aortic aneurysm repair No pertinent past surgical history Family History Family History Father Thoracic aortic aneurysm (TAA) Grandparent Thoracic aortic aneurysm (TAA) Other Sudden of family member Social History Social History 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 HEAD: Normocephalic, atraumatic. ENT: Mucous membranes moist. NECK: Supple. Tender palpation midline cervical spine at the occipital protuberances CHEST: Clear to auscultation. No respiratory distress. HEART: Regular rate and rhythm. Normal peripheral pulses. EXTREMITIES: Normal range of motion. No edema. SKIN: Warm, dry, no rash. NEURO: Alert and oriented x3. PSYCH: Normal mood and affect. Course Course Emergency Course: Full range of motion the head after Toradol and Valium. Appropriate for discharge home. Vital Signs Vital signs: Vital Signs Temperature 97.6 F 05/24/25 07:28 Pulse Rate 97 05/24/25 07:28 Respiratory Rate 20 05/24/25 07:28 Blood Pressure 139/96 H 05/24/25 07:28 Pulse Oximetry 98 05/24/25 07:28 Temperature 97.6 F 05/24/25 07:28 Pulse Rate 74 05/24/25 08:29 Respiratory Rate 18 05/24/25 08:29 Blood Pressure 142/97 H 05/24/25 08:29 Pulse Oximetry 98 05/24/25 08:29 MDM - Neck Pain/Injury Differential Diagnosis Differential diagnosis: Likely disc disorder of cervical region, whiplash injury to neck, fracture of cervical spine without lesion of spinal cord, torticollis and strain of neck muscle Imaging Data Radiologist's impression: ITS Impressions Cervical Spine CT 05/24/25 09:11 IMPRESSION: 1. Chronic widening of the C6-C7 disc, stable from 04/22/2024, which may be from old injury. 2. Mild cervical spondylosis. Discharge Plan Discharge Clinical Impression: Cervical paraspinal muscle spasm Patient Disposition: Home Condition: Stable Instructions: Muscle Spasm (ED) Additional Instructions: Please return to the emergency department if you develop severe pain that is not controlled by pain medications or if you are unable to walk because of pain or weakness. Return to the emergency department immediately if you develop fevers, loss of bowel or bladder control (dribbling of urine or having accidents you wouldn't normally have), inability to urinate, numbness of your genital or anal area, or weakness/numbness of your legs or arms as these could all be signs of a serious medical emergency. Patient Language: Martiniquais Prescriptions: New cyclobenzaprine 10 mg tablet 10 mg PO TID PRN (Reason: muscle spasm) Qty: 20 0RF naproxen 375 mg tablet 375 mg PO BID Qty: 14 0RF No Action divalproex 500 mg tablet,delayed release (DR/EC) PO BID trazodone 100 mg tablet 100 mg PO QHS Qty: 90 0RF Follow-up/Referrals: Brianna Lees MD [Primary Care Provider, Family Practice] - 1 Week
[2025-05-24] MEDS: KETOROLAC 30 MG/ML VIAL (*BKC) IV PUSH (08:03)
[2025-05-24] MEDS: diazePAM INJ (*CRX) 10 MG/2 ML SYRINGE 5 MG IV PUSH (08:03)
[2025-05-24] MEDS: SODIUM CHLORIDE 0.9% IV 1,000 ML 999 ML IV CONT (08:04)
[2025-05-24 08:29] VITALS: BP 142/97; PULSE 74; RESP 18; O2SAT 98
== END 2025-05-24 11:12 | disposition home or self-care (01) ==
PROVIDERS: Emergency Provider Emergency Medicine; PCP Family Medicine
DX: M62.838 Other muscle spasm (principal); M47.812 Spondylosis without myelopathy or radiculopathy, cervical region; F31.9 Bipolar disorder, unspecified
CPT/HCPCS: 72125; 96361; 96374; 96375; 99284; J1885; J3360; J7030

== ENCOUNTER 2025-05-24 19:13 | Emergency (ER) | payer OTHER, SELFPAY ==
--- OUTSIDE RECORDS SUMMARY | 2002-08-23 04:45 | XMS_ITS | Continuity of Care Document ---
Author Organization [facility] Address [address] [place] [address] Phone Care Team Providers Care Automobile Rental Representative Name Role Phone Wendy Russo Unavailable Unavailable Advance Directives Directive Yes / No Effective Date File Name No Information Encounters Encounter Description Practice Location Reason(s) For Visit Diagnoses Date Provider Providers Copied on Encounter [facility], [address], [place], [place], [id number], [place] tel:[phone] [facility] No Information [address]. [address] , [address], [place], [address], [place]. tel:[phone] Family History Family Member Type Diagnosis Age At Onset No Information Payers Payer name Insurance type Covered democrat ID Authoriza tion(s) [employer] SOI CI [id number] Social History Type Description Quantity Date Captured Comments Sex Male Smoking Status No Information Chief Complaint And Reason For Visit No Information Reason For Referral Reason For Referral No Information History Of Present Illness Encounter Date Complaint History Of Prese nt Illness No Information Functional Status Date Functional Assessmen t No Information Instructions Date Instruction Additional Infor mation No Information Assessments Type Assessment Date No Information Patient Care Teams Name Effective Dates (start - stop) Status Members No Information
--- OUTSIDE RECORDS SUMMARY | 2002-08-23 04:45 | XMS_ITS | Continuity of Care Document ---
Author Organization [facility] Address [address] [place] [address] Phone Care Team Providers Care Collar Band Creaser Name Role Phone Wendy Russo Unavailable Unavailable Advance Directives Directive Yes / No Effective Date File Name No Information Encounters Encounter Description Practice Location Reason(s) For Visit Diagnoses Date Provider Providers Copied on Encounter [facility], [address], [place], [place], [id number], [place] tel:[phone] [facility] No Information [address] Nguyen. [address] , [address], [place], [address], [place]. tel:[phone] Family History Family Member Type Diagnosis Age At Onset No Information Payers Payer name Insurance type Covered republican ID Authoriza tion(s) [employer] SOI CI [id number] Social History Type Description Quantity Date Captured [...]
--- NOTE | ~2025-05-24 | CT_ITS ---
EXAMINATION: CTA brain carotid DATE: 05/24/2025 21:31 INDICATION: Posterior neck pain. TECHNIQUE: Computed tomographic angiography (CTA) of the head was performed without and with 100 mL Omnipaque-350 intravenous contrast. CTA of the neck was performed with intravenous contrast. Automated exposure control and iterative reconstruction technique were employed. The dose-length product was 1926.95 mGy- cm. Maximum intensity projection and volume rendered 3D-reconstructions were created by the technologist on a separate workstation. COMPARISON: None. FINDINGS: HEAD CTA: There are scattered areas of low attenuation in the cerebral white matter. There is no intracranial hemorrhage, acute infarction, or abnormal intracranial mass lesion. The ventricles are normal in size. The orbits are normal. There is mild mucosal thickening in the paranasal sinuses. The mastoid air cells are normal. The vertebral arteries are codominant. There is no significant stenosis of basilar artery or the posterior cerebral arteries. There is no significant stenosis of the intracranial internal carotid arteries or anterior or middle cerebral arteries. Anterior communicating artery is normal. The posterior communicating arteries are normal. There is no aneurysm. NECK CTA: There are no pathologically enlarged lymph nodes. There is no significant stenosis of the vertebral arteries. There is mild plaque in proximal left internal carotid artery. There is 0% stenosis of the proximal right internal carotid artery relative to normal distal artery lumen diameter (NASCET criteria). There is 0% stenosis of the proximal left internal carotid artery relative to normal distal artery lumen diameter. There is mild cervical spondylosis. IMPRESSION: 1. Mild nonspecific cerebral white matter disease. The differential diagnosis includes premature chronic small vessel ischemic disease (especially if the patient has cardiovascular risk factors), demyelinating disease such as multiple sclerosis, drug abuse, vasculitis, or reactive astrocytosis (gliosis) secondary to nonspecific etiology. 2. No aneurysm or significant intracranial arterial stenosis. 3. 0% stenosis of the proximal internal carotid arteries relative to normal distal artery lumen diameters (NASCET criteria). Reviewed, dictated and finalized at location E. IMPRESSION: 1. Mild nonspecific cerebral white matter disease. The differential diagnosis i ncludes premature chronic small vessel ischemic disease (especially if the sheldon ent has cardiovascular risk factors), demyelinating disease such as multiple sc lerosis, drug abuse, vasculitis, or reactive astrocytosis (gliosis) secondary t o nonspecific etiology. 2. No aneurysm or significant intracranial arterial stenosis. 3. 0% stenosis of the proximal internal carotid arteries relative to normal dis cheyanne artery lumen diameters (NASCET criteria).
--- OUTSIDE RECORDS SUMMARY | 2025-05-24 19:16 | XMS_ITS | Clinical Summary ---
Author Organization [facility] [id number] Address [address] [place] [address] Care Team Providers Care Pharmacy Customer Care Specialist Name Role Phone Unavailable Primary Care Provider [...] series) 2021 INFLUENZA VACCINE (#1) 2025 Insurance [facility]
[2025-05-24 19:22] VITALS: BP 136/79; PULSE 107; RESP 18; TEMP 36.6; O2SAT 99
--- OUTSIDE RECORDS SUMMARY | 2025-05-24 19:38 | XMS_ITS | Clinical Summary ---
Author Organization [employer] [id number] Address [address] [place] [address] Care Team Providers Care Body Shop Manager Name Role Phone Unavailable Primary Care Provider [...] series) 2021 INFLUENZA VACCINE (#1) 2025 Insurance [facility]
--- NOTE | 2025-05-24 19:50 | ED.NECK ---
HPI - Neck Pain/Injury General Chief Complaint: Neck Pain/Injury Stated Complaint: worsening neck pain Time Seen by Provider: 05/24/25 19:27 Source: patient and family Mode of arrival: ambulatory Limitations: no limitations History of Present Illness HPI Narrative: This is a 29-year-old male with prior history of aortic aneurysm repair who presents the ED for neck pain. Patient states that he he began to have severe posterior neck pain when he was sitting at home last night. This has persisted through today. He was seen in this ED today and was given prescriptions for naproxen and cyclobenzaprine but is continued to have severe neck pain since then. Denies numbness, tingling. He does note the pain is worse with swallowing. Denies fevers, chills, cough, congestion. Related Data Home Medications ?Medication ?Instructions ?Recorded ?Confirmed ?Last Taken ?Type divalproex 500 mg tablet,delayed mg PO BID 04/03/25 04/03/25 Unknown History release Allergies Allergy/AdvReac Type Severity Reaction Status Date / Time amoxicillin Allergy Mild hives Verified 05/24/25 08:01 bee pollen Allergy Mild swelling Verified 05/24/25 08:01 Penicillins Allergy Mild hives Verified 05/24/25 08:01 prochlorperazine (From AdvReac Blurry Verified 05/24/25 08:01 Compazine) Vision Review of Systems Review of Systems: Gen.: Denies fevers or chills Eyes: Denies eye pain or visual change ENT: Denies congestion Respiratory: Denies shortness of breath or cough CV: Denies chest pain or palpitations GI: Denies abdominal pain nausea, emesis or diarrhea denies burning, urgency, frequency or hematuria Musculoskeletal: Denies back pain or muscle pain Neuro: Denies numbness, tingling, weakness or focal weakness Skin: Denies rash Except as documented, all other systems reviewed and negative [facility] Past Medical History Medical History History of alcohol abuse Person under investigation for COVID-19 Pericarditis Aortic aneurysm without rupture Insomnia Bipolar disorder, manic Schizoaffective disorder, bipolar type Surgical History Surgical History S/P aortic aneurysm repair No pertinent past surgical history Family History Family History Father Thoracic aortic aneurysm (TAA) Grandparent Thoracic aortic aneurysm (TAA) Other Sudden of family member Social History Social History 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 Oropharynx without erythema or exudates. Uvula midline. Neck: Full passive range of motion, limited active range of motion. No appreciable tenderness to palpation to the midline cervical spine or paracervical musculature. RESPIRATORY: No respiratory distress Clear to auscultation bilaterally with no rhonchi wheezing or rales. CARDIOVASCULAR: Regular rate and rhythm without murmurs rubs or gallops. ABDOMINAL: Soft, nontender, nondistended, no rebound or guarding MUSCULOSKELETAl: Moves all extremities. No clubbing, cyanosis or edema. NEURO: Awake and alert. Following commands, speech normal, no focal deficits SKIN:: Warm, dry. No rashes lesions or abrasions PSYCHIATRIC: Normal affect/mood, Course Vital Signs Vital signs: Vital Signs Temperature 97.9 F 05/24/25 19:22 Pulse Rate 107 H 05/24/25 19:22 Respiratory Rate 18 05/24/25 19:22 Blood Pressure 136/79 05/24/25 19:22 Pulse Oximetry 99 05/24/25 19:22 Oxygen Delivery Room Air 05/24/25 19:22 Temperature 97.9 F 05/24/25 19:22 Pulse Rate 83 05/24/25 23:08 Respiratory Rate 16 05/24/25 23:08 Blood Pressure 137/93 H 05/24/25 23:08 Pulse Oximetry 98 05/24/25 23:08 Oxygen Delivery Room Air 05/24/25 19:22 MDM - Neck Pain/Injury MDM Narrative Medical decision making narrative: 29-year-old male Presenting for neck pain. On initial evaluation patient was in mild distress afebrile, hemodynamic stable. Patient's history most notable for thoracic aortic aneurysm repair a year ago. Notable exam findings: Mild tenderness to the posterior neck. No meningeal signs. Notable lab findings: Mild leukocytosis at 11.2. CMP without significant abnormalities. Notable imaging findings: CTA head/neck showed no evidence of dissection or other vascular pathology. Patient did have some improvement of his symptoms with morphine. Suspect some cervicalgia it is a source of his pain. However, he will be given a referral to Spine surgery, Dr. Delcid, given the chronic widening of the C6-C7 disc from a prior injury. He also has follow-up with cardiology and cardiothoracic surgery and I advised that he follow-up regarding the pulmonary hypertension that was noted on his CTs. He was given a prescription for Urich in the meantime. Patient and family were agreeable to this plan. Given strict return precautions. Differential Diagnosis Differential diagnosis: Likely disc disorder of cervical region, closed subluxation of cervical spine, fracture of cervical spine without lesion of spinal cord, cervical radiculopathy, vertebral artery dissection, torticollis, cervical spondylosis and strain of neck muscle Medical Records Attestation: I reviewed the patient's medical records. Medical records narrative: Patient seen here earlier today is, CT cervical spine obtained which showed: Chronic widening of the C6-C7 disc, stable from prior. Mild cervical spondylosis noted Lab Data Attestation: I reviewed the patient's lab results. 05/24/25 20:31 05/24/25 20:31 Labs: Lab Results 05/24/25 Range/Units 20:31 WBC 11.2 H (4.5-10.0) K/mm3 RBC 5.04 (4.6-6.20) M/mm3 Hgb 14.5 D (14.0-18.0) g/dL Hct 43.8 (42.0-52.0) % MCV 86.9 (80-100) fl MCH 28.8 (26-34) pg MCHC 33.1 (32-36) g/dl RDW 13.0 (11.5-14.5) % Plt Count 235 (150-375) k/mm3 MPV 9.8 (7.4-10.4) fl Immature Gran % (Auto) 0.4 (0-0.5) % Neut % (Auto) 72.2 (45.5-73.1) % Lymph % (Auto) 14.1 L (18.3-44.2) % [place] % (Auto) 12.7 H (2.6-8.5) % Eos % (Auto) 0.3 (0-4.4) % Baso % (Auto) 0.3 (0.2-1.2) % Lymph # (Auto) 1.59 (0.9-3.2) K/mm3 [place] # (Auto) 1.4 H (0.1-0.6) K/mm3 Eos # (Auto) 0.0 (0-0.3) K/mm3 Baso # (Auto) 0.0 (0.0-0.1) K/mm3 Abs Immat Gran (auto) 0.05 H (0.00-0.031) K/mm3 Absolute Neuts (auto) 8.1 H (1.3-6.7) K/mm3 Absolute Nucleated RBC 0.000 (0.0-0.012) K/mm3 Nucleated RBC % 0.0 (0.0-0.2) % Sodium 137 (137-145) mmol/L Potassium 4.0 (3.4-5.0) mmol/L Chloride 103 (98-107) mmol/L Carbon Dioxide 24 (22-30) mmol/L Anion Gap 10 (4-12) mmol/L BUN 16 (9-20) mg/dL Creatinine 0.78 (0.7-1.3) mg/dL Estim Creat Clear Calc 145 ml/min Estimated GFR > 60 (59 - ) Glucose 115 H (65-110) mg/dL Calcium 8.7 (8.4-10.2) mg/dL Total Bilirubin 0.5 (0.2-1.3) mg/dL AST 22 (17-59) U/L ALT 28 (6-50) U/L Alkaline Phosphatase 60 (38-126) U/L Total Protein 7.3 (6.3-8.2) g/dL Albumin 4.4 (3.5-5.1) g/dL Imaging Data Attestation: I personally reviewed and interpreted this imaging study as follows: My impression: CTA brain/carotid: No dissection Radiologist's impression: CTA brain/carotid: No evidence of acute intracranial abnormality. No evidence of acute large vessel transcortical infarct. No ICH, mass effect or edema. No evidence of acute large vessel occlusion. Patent anterior, middle and posterior cerebral arteries. Patent carotid and vertebral arteries without evidence of dissection or high-grade stenosis. Cardiomegaly. Pulmonary hypertension. Air trapping or mild anemia. Discharge Plan Discharge Clinical Impression: Cervicalgia Patient Disposition: Home Condition: Stable Instructions: Antibiotic Form, Neck Pain (ED) Additional Instructions: Take Flexeril, naproxen as previously prescribed. Take hydrocodone as prescribed. You were given a referral to Dr. Delcid, spinal surgery, follow-up with his office in the next week for re-evaluation. Follow-up with your PCP in the next week for re-evaluation. Follow-up with your thoracic medicine specialist and cardiothoracic surgeon regarding the pulmonary hypertension that was noted on your CT scan. Return to the ED for any new or worsening symptoms. Patient Language: Omani Prescriptions: New hydrocodone-acetaminophen 5-325 mg tablet 1 tablet PO Q8H PRN (Reason: pain) Qty: 12 0RF No Action divalproex 500 mg tablet,delayed release (DR/EC) PO BID trazodone 100 mg tablet 100 mg PO QHS Qty: 90 0RF cyclobenzaprine 10 mg tablet 10 mg PO TID PRN (Reason: muscle spasm) Qty: 20 0RF naproxen 375 mg tablet 375 mg PO BID Qty: 14 0RF Follow-up/Referrals: rBianna Lees MD [Primary Care Provider, Family Practice]
[2025-05-24] MEDS: diazePAM INJ (*CRX) 10 MG/2 ML SYRINGE 5 MG IV PUSH (20:35)
[2025-05-24 20:37] LABS: Hematocrit 43.8 % (42.0-52.0); Hemoglobin 14.5 g/dL (14.0-18.0); Immature Granulocyte Percent A 0.4 % (0-0.5); Lymphocytes Absolute Auto 1.59 K/mm3 (0.9-3.2); Mean Corpuscular HGB Conc 33.1 g/dl (32-36); Mean Corpuscular Hemoglobin 28.8 pg (26-34); Mean Corpuscular Volume 86.9 fl (80-100); Nucleated Red Blood Cells Absolute Auto 0.000 K/mm3 (0.0-0.012); Nucleated Red Blood Cells Perc 0.0 % (0.0-0.2); Platelet Count Result 235 k/mm3 (150-375); Red Blood Count 5.04 M/mm3 (4.6-6.20); White Blood Count 11.2 K/mm3 (4.5-10.0)
[2025-05-24 20:51] LABS: Alanine Aminotransferase 28 U/L (6-50); Albumin Level 4.4 g/dL (3.5-5.1); Alkaline Phosphatase 60 U/L (38-126); Anion Gap 10 mmol/L (4-12); Aspartate Amino Transferase 22 U/L (17-59); Bilirubin,Total 0.5 mg/dL (0.2-1.3); Blood Urea Nitrogen 16 mg/dL (9-20); Calcium 8.7 mg/dL (8.4-10.2); Carbon Dioxide 24 mmol/L (22-30); Chloride 103 mmol/L (98-107); Estimated CRCL calculation 145 ml/min; Estimated Glomerular Filt Rate > 60; Glucose 115 mg/dL (65-110); Potassium 4.0 mmol/L (3.4-5.0); Sodium 137 mmol/L (137-145); Total Protein 7.3 g/dL (6.3-8.2)
[2025-05-24] MEDS: MORPHINE SULFATE (*CRX) 4 MG/ML INJ IV PUSH (21:36)
[2025-05-24 21:38] VITALS: BP 136/79; PULSE 81; RESP 20; O2SAT 100
[2025-05-24 23:08] VITALS: BP 137/93; PULSE 83; RESP 16; O2SAT 98
[2025-05-24] MEDS: HYDROcodone/acetaminophen (*CRX) 5-325 MG TABLET 1 TAB PO (23:13)
[2025-05-24 23:27] VITALS: BP 140/98; PULSE 111; RESP 20; O2SAT 96
== END 2025-05-24 23:32 | disposition home or self-care (01) ==
PROVIDERS: Emergency Provider Student in an Organized Health Care Education/Training Program; PCP Family Medicine
DX: M54.2 Cervicalgia (principal); F31.9 Bipolar disorder, unspecified
CPT/HCPCS: 36415; 70496; 70498; 80053; 85025; 96374; 96375; 99284; A9270; J2270; J3360; Q9967

== ENCOUNTER 2025-06-17 08:52 | Emergency (ER) | payer OTHER, SELFPAY ==
[2025-06-17 09:02] VITALS: BP 121/77; PULSE 92; RESP 16; TEMP 36.8; O2SAT 100
--- NOTE | 2025-06-17 09:32 | ED_ITS ---
HPI - Nausea/Vomiting/Diarrhea General Chief complaint: Nausea/Vomiting/Diarrhea Stated complaint: HEADACHE/STOMACH PAIN/BODY ACHES Time Seen by Provider: 06/17/25 09:20 Source: patient and RN notes reviewed Mode of arrival: ambulatory Limitations: no limitations History of Present Illness HPI Narrative: 29-year-old male patient presents to the [facility] complaining of runny nose, headaches, body aches, nausea that started approximately 6 hours ago. Patient denies any cough, congestion, any other upper respiratory symptoms, fevers, chills, sweats, abdominal pain, vomiting, diarrhea, or any other symptoms. Patient tried any [id number] to help with symptoms. Related Data Home Medications ?Medication ?Instructions ?Recorded ?Confirmed ?Last Taken ?Type divalproex 500 mg tablet,delayed 500 mg PO BID 5 06/17/25 Unknown History release Allergies Allergy/AdvReac Type Severity Reaction Status Date / Time amoxicillin Allergy Mild hives Verified 06/17/25 08:58 bee pollen Allergy Mild swelling Verified 06/17/25 08:58 Penicillins Allergy Mild hives Verified 06/17/25 08:58 prochlorperazine (From AdvReac Blurry Verified 06/17/25 08:58 Compazine) Vision Review of Systems Review of Systems: CONSTITUTIONAL: Denies fever, chills, or sweats. Positive for body aches. EYES: Denies visual changes, redness, or discharge. ENT: Denies, congestion, sore throat, or otalgia. Positive for rhinorrhea. CARDIOVASCULAR: Denies chest pain, palpitations, or edema. RESPIRATORY: Denies cough or dyspnea. GASTROINTESTINAL: Denies abdominal pain,, vomiting, or diarrhea. Positive positive for nausea GENITOURINARY: Denies dysuria or hematuria. SKIN: Denies rash or itching. MUSCULOSKELETAL: Denies back pain, joint pain, or myalgia. NEUROLOGIC: Denies numbness, or weakness. Positive for headaches. PSYCHIATRIC: Denies anxiety or depression. All other systems reviewed are negative, except as documented in HPI. 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 There is no relevant family history pertinent to the patient complaint. Exam Narrative: GENERAL: This is a well-nourished, well-developed adult, in no apparent distress. They are non ill-appearing, nontoxic appearing. HEAD: normocephalic, atraumatic. EYES: Sclera clear/white. Conjunctiva normal. Vision is grossly intact. Extraocular movements intact EARS: External ears normal, auditory canals clear and without drainage, TMs normal without perforation. Hearing grossly intact. NOSE: External nose normal with no obvious nasal discharge, nasal turbinates erythema neck without swelling. There is rhinorrhea. THROAT: Mucous membranes moist, posterior pharynx erythematous. Tonsils 2+ erythematous. No exudate. Uvula midline. Postnasal drip present. NECK: Neck supple, non-tender without lymphadenopathy, masses or thyromegaly. CARDIOVASCULAR: Regular rate and rhythm without murmurs, gallops, or rubs. RESPIRATORY: Clear to auscultation. Breath sounds equal bilaterally. No wheezes, rales, or rhonchi. GASTROINTESTINAL: Abdomen soft, non-tender, nondistended. Bowel sounds are active. No hepato-splenomegaly, or palpable masses. No guarding or rigidity. No rebound tenderness. SKIN: warm, Dry, intact with no suspicious lesions or rash, good texture and turgor. NEURO: awake, alert, and oriented to person, place and time. There were no obvious focal neurologic abnormalities. EXTREMITIES: No joint tenderness, effusion, or edema noted. BACK: Nontender without deformity. No CVA tenderness. Course Course Emergency Course: Portions of this record may have been created with voice recognition software Level of Care: Express Care Visit Vital Signs Vital signs: Vital Signs Temperature 98.2 F 06/17/25 09:02 Pulse Rate 92 06/17/25 09:02 Respiratory Rate 16 06/17/25 09:02 Blood Pressure 121/77 06/17/25 09:02 Pulse Oximetry 100 06/17/25 09:02 Temperature 98.2 F 06/17/25 09:02 Pulse Rate 92 06/17/25 09:02 Respiratory Rate 16 06/17/25 09:02 Blood Pressure 121/77 06/17/25 09:02 Pulse Oximetry 100 06/17/25 09:02 Reviewed MDM - Nausea/Vomiting/Diarrhea MDM Narrative Medical decision making narrative: Rapid COVID is positive. Flu, strep were negative. Will send patient home with anti nausea medicine with Zofran. Discussed supportive care. Discussed physical exam findings. Advised supportive measures and signs/symptoms to go to the ER. Pt is appropriate for outpt treatment and f/u. Differential Diagnosis Differential diagnosis: Likely gastroenteritis and other (Viral infection, upper respiratory infection, pharyngitis, sinusitis,) Lab Data Attestation: I reviewed the patient's lab results. Labs: Lab Results 06/17/25 Range/Units 09:41 POC Influenza A Ag Negative (Negative) POC Influenza B Ag Negative (Negative) POC SARS CoV-2 Ag Positive (Negative) POC Grp A Strep Screen Negative (Negative) Critical Care Time Critical Care Time Critical Care Time: No Discharge Plan Discharge Clinical Impression: COVID Patient Disposition: Home Condition: Stable Instructions: COVID-19 (Coronavirus Disease 2019) (ED) Additional Instructions: You tested positive for COVID. Your rapid flu and strep were negative. A throat culture will be sent off if it is positive for strep you will be cont acted started on appropriate antibiotics. COVID is a viral illness therefore antibiotics are ineffective to it. Rest. Drink plenty of fluids. You may take ibuprofen 600 mg to 800 mg every 6-8 hours. Do not exceed more than 800 mg of ibuprofen per dose. Do not exceed more than 3200 mg ibuprofen in a day. You may take up to 1000 mg Tylenol every 6-8 hours. Do not exceed 1000 mg per dose, do exceed more than 4000 mg of Tylenol in a day. If you take DayQuil and NyQuil do not take additional Tylenol as it already contains Tylenol in it. Follow up with your primary care provider 5 to 7 days. Go to the ER for worsening symptoms, breathing problems, chest pains, vomiting, rapid breathing, unable to talk in full sentences, or any serious concerns Patient Language: Slovenian Prescriptions: No Action divalproex 500 mg tablet,delayed release (DR/EC) 500 mg PO BID trazodone 100 mg tablet 100 mg PO QHS Qty: 90 0RF Follow-up/Referrals: Brianna Lees MD [Primary Care Provider, Family Practice] Stand Alone Forms: Work/School Release IP Time of Disposition: 09:51
[2025-06-17 09:44] LABS: EDCOVIDSCREEN Positive (Negative); EDINFLUASCREEN Negative (Negative); EDINFLUBSCREEN Negative (Negative); EDSTREPNEGPOS1 Negative (Negative)
== END 2025-06-17 09:55 | disposition home or self-care (01) ==
PROVIDERS: PCP Family Medicine
DX: U07.1 COVID-19 (principal); F31.9 Bipolar disorder, unspecified
CPT/HCPCS: 87081; 87426; 87804; 87880; 99213; G0463